=== PATIENT | male | born 1950 | race Caucasian/White ===

== ENCOUNTER 2024-04-09 12:44 | Outpatient (REF) | payer MEDICARE, SELFPAY ==
--- OUTSIDE RECORDS SUMMARY | 2024-04-09 13:48 | XMS_ITS | Clinical Summary ---
Author Organization [address] Address [address] [place] [phone] Phone Care Team Providers Care Missileman Name Role Phone Physician, Pcp Unknown Primary Care Provider Paula vailable Allergies No known active allergies Medications No known medications Encounters Date Type Department Care Team Description 02/01/2024 8:45 AM EST Consult Orthopedic Surgery - [place] [address] [place] [id number] Aakash Galloway, DPM Ulcer of toe of right foot, limited to breakdown of skin (CMS/HCC) (Primary Dx); Local infection of the skin and subcutaneous tissue, unspecified; Bilateral femoral artery stenosis (CMS/HCC) from Last 3 Months Social History Tobacco Use Types Packs/Day Years Used Date Smoking Tobacco: Never Assessed Sex and Gender Information Value Date Recorded Sex Assigned at Not on file Legal Sex Male 3:21 AM EST Gender Identity Not on file Sexual Orientation Not on file Last Filed Vital Signs Vital Sign Reading Time Taken Comments Blood Pressure - - Pulse - - Temperature - - Respiratory Rate - - Oxygen Saturation - - Inhaled Oxygen Concentration - - Weight 68.5 kg (151 lb) 02/01/2024 9:07 AM EST Height 165.1 cm (5' 5 ) 02/01/2024 9:07 AM EST Body Mass Index 25.13 02/01/2024 9:07 AM EST Plan of Treatment Health Maintenance Due Date Last Done Comments DTaP,Tdap,and Td Vaccines (1 - Tdap) 1957 Pneumococcal Vaccine: 50+ Ye ars (1 of 1 - PCV) 1999 Zoster Vaccines (1 of 2) 1999 Abdominal Aortic Aneurysm (A AA) Screen 01/30/2022 Cholesterol Screening (Lipid Panel) 01/30/2022 Colorectal Cancer Screening: Colonoscopy 01/30/2022 Depression Screening 01/30/2022 Falls Risk Assessment 01/30/2022 Hepatitis C Screening 01/30/2022 Medicare Annual Wellness Visit 01/30/2022 Social Influencers of Health Screening 01/30/2022 COVID-19 Vaccine ( - 2023-2 5 season) 2023 Influenza Vaccine (#1) 2023 RSV Immunization Patients 60 + Years Old (1 - 1-dose 75+ series) 2024 HIB Vaccines Aged Out No longer eligi ble based on patient's age to complete this topic HPV Vaccines Aged Out No longer eligi ble based on patient's age to complete this topic Hepatitis A Vaccines Aged Out No long er eligible based on patient's age to complete this topic Hepatitis B Vaccines Aged Out No long er eligible based on patient's age to complete this topic IPV Vaccines Aged Out No longer eligi ble based on patient's age to complete this topic MMR Vaccines Aged Out No longer eligi ble based on patient's age to complete this topic Meningococcal ACWY Vaccine Aged Out N o longer eligible based on patient's age to complete this topic Meningococcal B Vacine Aged Out No lo nger eligible based on patient's age to complete this topic RSV Immunization Patients Un justice 20 months Aged Out No longer eligible b ased on patient's age to complete this topic Varicella Vaccines Aged Out No longer eligible based on patient's age to complete this topic Procedures Procedure Name Priority Date/Time Associated Diagnosis Comments USAMA IFA WITH TITER AND PATTERN Routine 01/24/2024 12:29 PM EST Routine general medical examination at a health care facility TREPONEMA PALLIDUM ANTIBODY WITH REFLEX TO RPR AND PARTICLE AGGLUTINATION Routine 01/24/2024 12:29 PM EST Routine general medical examination at a health care facility BASIC METABOLIC PANEL Routine 01/24/2024 12:29 PM EST Routine general medical examination at a health care facility THYROID STIMULATING HORMONE Routine 01/24/2024 12:29 PM EST Routine general medical examination at a health care facility BORRELIA BURGDORFERI ANTIBODY Routine 01/24/2024 12:29 PM EST Routine general medical examination at a health care facility METHYLMALONIC ACID, SERUM Routine 01/24/2024 12:29 PM EST Routine general medical examination at a health care facility VITAMIN B12 Routine 01/24/2024 12:29 PM EST Routine general medical examination at a health care facility FOLATE Routine 01/24/2024 12:29 PM EST Routine general medical examination at a health care facility from Last 3 Months Results * Treponema pallidum antibody with reflex to RPR and particle agglutination (01/24/2024 12:29 PM EST) T. Pallidum Antibodies Negative Negative LAB CHEMISTRY METHOD 01/26/2024 9:06 AM EST [facility] Blood Venous blood specimen / Unknown Venipuncture / Unknown 01/24/2024 12:29 PM EST 01/24/2024 12:29 PM EST [facility] LAB BLOOD ORDERABLES Final Re sult Performing Organization Address City/Special Care [facility]/ZIP Co de Phone Number [facility] [address] [place] [address], [place] [phone] * USAMA IFA with titer and pattern (01/24/2024 12:29 PM EST) USAMA Negative Negative 01/30/2024 11:17 AM EST [facility] Blood Venous blood specimen / Unknown Venipuncture / Unknown 01/24/2024 12:29 PM EST 01/24/2024 12:29 PM EST Yoan SkillBoostadante DO LAB BLOOD ORDERABLES Final Re sult [facility] [address] [place] [address], [place] [phone] * Methylmalonic acid, serum (01/24/2024 12:29 PM EST) [facility] Methylmalonic Acid 0.12 <0.40 umol/L 01/30/2024 7:59 AM EST [facility] Comment: If applicable, any drug confirmation testing reported here was developed and the performance characteristics determined by [facility]. This confirmation testing has not been cleared or approved by the FDA. The laboratory is regulated under CLIA as qualified to perform high-complexity testing. This test is used for patient testing purposes. It should not be regarded as investigational or for research. Test performed at [facility], [address] , [place], [place] ??[address] ? [phone] Klarissa Dupont MD, PhD - Division Merchandise Manager Blood Venous blood specimen / Unknown Venipuncture / Unknown 01/24/2024 12:29 PM EST 01/24/2024 12:29 PM EST Yoan Fajardo DO LAB BLOOD ORDERABLES Final Re sult [facility] [address] [place] [address] * (ABNORMAL) Borrelia burgdorferi antibody (01/24/2024 12:29 PM EST) [facility] Lyme IgG Antibody Negative Negative LAB CHEMISTRY METHOD 01/26/2024 9:04 AM EST [facility] Lyme IgM Antibody Negative Negative LAB CHEMISTRY METHOD 01/26/2024 9:04 AM EST [facility] Lyme Ab Equivocal(A ) Negative LAB CHEMISTRY METHOD 01/26/2024 9:04 AM EST [facility] Comment: No laboratory evidence of infection with B. burgdorferi (Lyme disease). Negative results may occur in patients recently infected (<=14 days) with B. burgdorferi. ??If recent infection is suspected, repeat testing on a new sample collected in 7-14 days is recommended. Blood Venous blood specimen / Unknown Venipuncture / Unknown 01/24/2024 12:29 PM EST 01/24/2024 12:29 PM EST [facility] LAB BLOOD ORDERABLES Final Re sult Performing Organization Address City/[facility] Care [facility]/ZIP Co de Phone Number [facility] [address] [place] [address], [place] [phone] * (ABNORMAL) Thyroid stimulating hormone (01/24/2024 12:29 PM EST) [facility] TSH 5.59(H) 0.40 - 4.00 mcIU/mL LAB CHEMISTRY METHOD 01/24/2024 7:34 PM EST [facility] Blood Venous blood specimen / Unknown Venipuncture / Unknown 01/24/2024 12:29 PM EST 01/24/2024 12:29 PM EST [facility] BLOOD ORDERABLES Final Re sult Performing Organization Address [facility]/ZIP Co de Phone Number [facility] [address] [place] [address], [place] [phone] * Folate (01/24/2024 12:29 PM EST) [facility] Folate 3.8 2.8 - 17.0 ng/ml LAB CHEMISTRY METHOD 01/24/2024 8:38 PM EST [facility] Blood Venous blood specimen / Unknown Venipuncture / Unknown 01/24/2024 12:29 PM EST 01/24/2024 12:29 PM EST [facility] BLOOD ORDERABLES Final Re sult Performing Organization Address City/[facility] Care [facility]/ZIP Co de Phone Number [facility] [address] [place] [address], [place] [phone] * (ABNORMAL) Vitamin B12 (01/24/2024 12:29 PM EST) [facility] Vitamin B-12 >2,000(H) 250 - 900 pcg/mL LAB CHEMISTRY METHOD 01/24/2024 9:23 PM [facility] Comment:Results verified by repeat testing Blood Venous blood specimen / Unknown Venipuncture / Unknown 01/24/2024 12:29 PM EST 01/24/2024 12:29 PM EST us Yoan Fajardo DO LAB BLOOD ORDERABLES Final Re sult [facility] [address] [place] [address], [place] [phone] * (ABNORMAL) Basic metabolic panel (01/24/2024 12:29 PM EST) Sodium 136 133 - 145 mmol/L LAB CHEMISTRY METHOD 01/24/2024 8:38 PM [facility] Potassium 5.4 3.5 - 5.5 mmol/L LAB CHEMISTRY METHOD 01/24/2024 8:38 PM [facility] Chloride 104 96 - 110 mmol/L LAB CHEMISTRY METHOD 01/24/2024 8:38 PM [facility] CO2 23 21 - 32 mmol/L LAB CHEMISTRY METHOD 01/24/2024 8:38 PM [facility] Anion Gap 9 3 - 11 LAB CHEMISTRY METHOD 01/24/2024 8:38 PM [facility] Glucose 199(H) 70 - 100 mg/dL LAB CHEMISTRY METHOD 01/24/2024 8:38 PM [facility] BUN 18 5 - 25 mg/dL LAB CHEMISTRY METHOD 01/24/2024 8:38 PM [facility] Creatinine 0.96 0.70 - 1.30 mg/dL LAB CHEMISTRY METHOD 01/24/2024 8:38 PM [facility] eGFR 83 >=60 mL/min/1. 73m2 LAB CHEMISTRY METHOD 01/24/2024 8:38 PM [facility] Comment:Calculation based on the??Chronic Kidney Disease Epidemiology Collaboration (CKD-EPI) equation refit??without adjustment for race. BUN/Creatinine Ratio 18.8 LAB CHEMISTRY METHOD 01/24/2024 8:38 PM EST [facility] Calcium 9.9 8.5 - 10.5 mg/dL LAB CHEMISTRY METHOD 01/24/2024 8:38 PM EST [facility] Blood Venous blood specimen / Unknown Venipuncture / Unknown 01/24/2024 12:29 PM EST 01/24/2024 12:29 PM EST us Yoan Fajardo DO LAB BLOOD ORDERABLES Final Re sult [facility] ([facility]) [facility] [address] [place] [address], [place] [phone] from Last 3 Months Insurance [employer] Care Teams Missileman Relationship Specialty Start Date End Date Physician, Pcp Unknown PCP - General 02/01/24
[2024-04-09 14:42] LABS: Vitamin B12 > 2000 pg/mL (200-900)
== END 2024-04-09 12:45 | disposition home or self-care (01) ==
LOC: HO.LAB 12:44
PROVIDERS: PCP Internal Medicine; Visit Provider Psychiatry & Neurology Neurology
DX: G30.9 Alzheimer's disease, unspecified (principal)
CPT/HCPCS: 36415; 82607

== ENCOUNTER 2024-04-19 07:20 | Outpatient (REF) | payer MEDICARE, SELFPAY ==
--- NOTE | ~2024-04-19 | MR_ITS ---
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 No evidence of asymmetric mesial temporal lobe volume loss. No acute infarct. Mild age-related cerebral hemispheric white matter ischemic changes. Small focus of susceptibility artifact in the left cerebellar hemispheric due to small-vessel ischemic changes/disease or a small cavernoma. 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 No midline shift. No hydrocephalus. Vascular flow voids are intact. Bilateral cataract surgery. Mild partial opacification of some of the paranasal sinuses. No focal bone lesion. IMPRESSION: Relatively diffuse mzvd-jf-izdfzwrl cerebral hemispheric volume loss most conspicuous at level of mesial temporal lobes is at least partially age-related. No evidence of asymmetric mesial temporal lobe volume loss. Mild age-related cerebral hemispheric white matter ischemic changes. Small focus of susceptibility artifact in the left cerebellar hemispheric due to small-vessel ischemic changes/disease or a small cavernoma. 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 This document has been electronically signed by: Saumya Kidd MD on 04/19/2024 12:03:18
== END 2024-04-19 07:21 | disposition home or self-care (01) ==
LOC: HO.MRI 07:20
PROVIDERS: PCP Internal Medicine; Visit Provider Psychiatry & Neurology Neurology
DX: G30.9 Alzheimer's disease, unspecified (principal)
CPT/HCPCS: 70551

== ENCOUNTER → 2024-04-19 07:30 | Outpatient (BNV) | payer MEDICARE, SELFPAY | PROVIDERS: PCP Internal Medicine; Visit Provider Radiology Diagnostic Radiology | DX: I67.82 Cerebral ischemia (principal) | CPT/HCPCS: 70551 ==

== ENCOUNTER 2025-01-08 08:15 | Outpatient (AMB) | payer MEDICARE, SELFPAY ==
--- OUTSIDE RECORDS SUMMARY | 2025-01-07 23:59 | XMS_ITS | Continuity of Care Document ---
Author Organization [facility] Address [address] [place] [address]- Care Team Providers Care Snuff Box Finisher Name Role Phone Yoan Fajardo DO Primary Care Physician [id number] Date[facility]s): 12/31/24 - 01/07/25 [facility] [address], [place] [address] Encounter Diagnosis Osteomyelitis of toe of right foot(Discharge Diagnosis) - 12/31/24 T2DM (type 2 diabetes mellitus)(Discharge Diagnosis) - 12/31/24 Attending Physician: Yoan Fajardo DO Admitting Physician: Yoan Fajardo DO Referring Physician: Yoan Fajardo DO Encounter Type: Office Visit Allergies, Adverse Reactions, Alerts No Known Allergies Medications Acetaminophen 0 Refills, Maintenance, 04/12/17 8:49:06 AM EST Start Date: 04/12/17 Status: Ordered Medication Dispense Status: Completed Total Allowed Fills: 1 Fills Dispensed: 0 aspirin 325 mg oral delayed release tablet 325 mg, 1, tablet, By Mouth, Daily, # 30 tablet, Refills 0, Tot. Refills 0, Maintenance, 03/28/17 1:32:42 PM EST, Print Requisition Start Date: 03/28/17 Status: Ordered Medication Dispense Status: Completed Quantity: 30.0 Unit: tablet Total Allowed Fills: 1 Fills Dispensed: 0 BD COLETTE 2 GEN PEN NDL 32G 4MM BD COLETTE 2 GEN PEN NDL 32G 4MM, See Instructions, # 100 Unknown, 5 Refills, Maintenance, USE 1 PEN NEEDLE TO INJECT TRESIBA DAILY, 04/22/24 3:13:00 PM EST, 167.6, cm, 01/12/23 9:29:00 EST, Height Start Date: 04/22/24 Status: Ordered Medication Dispense Status: Completed Quantity: 100.0 Unit: Unknown Total Allowed Fills: 1 Fills Dispensed: 0 bisacodyl 10 mg rectal suppository 1 supp = 10 mg, Rectally, Daily, PRN Constipation, 0 Refills, Maintenance, 03/29/17 7:32:21 AM EST, Suppository Start Date: 03/29/17 Status: Ordered Medication Dispense Status: Completed Total Allowed Fills: 1 Fills Dispensed: 0 Colace sodium 100 mg oral capsule 100 mg, 1, capsule, By Mouth, 2 times a day, # 60 capsule, Refills 0, Tot. Refills 0, Maintenance, 03/28/17 12:36:52 PM EST, Print Requisition Start Date: 03/28/17 Status: Ordered Medication Dispense Status: Completed Quantity: 60.0 Unit: capsule Total Allowed Fills: 1 Fills Dispensed: 0 GlipiZIDE XL 2.5 mg oral tablet, extended release 1 tablet = 2.5 mg, By Mouth, Daily, TAKE RIGHT BEFORE BREAKFAST, # 30 tablet, 11 Refills, Maintenance, 10/25/24 5:03:00 PM EDT, ER Tablet, [facility]/pharmacy #[id number], E11.65, 167.6, cm, 10/25/24 15:25:00 EDT,Height Start Date: 10/25/24 Status: Ordered Medication Dispense Status: Completed Quantity: 30.0 Unit: tablet Total Allowed Fills: 12 Fills Dispensed: 0 lisinopril 20 mg oral tablet 20 mg, 1, tablet, By Mouth, Daily, # 30 tablet, Refills 0, Maintenance, 01/28/17 1:27:23 PM EST Start Date: 01/28/17 Status: Ordered Medication Dispense Status: Completed Quantity: 30.0 Unit: tablet Total Allowed Fills: 1 Fills Dispensed: 0 metFORMIN 850 mg oral tablet 1 tablet = 850 mg, By Mouth, 3 times a day, # 90 tablet, 11 Refills, Maintenance, 10/25/24 5:04:00 PM EDT, [facility]/pharmacy #[id number], E11.9, 167.6, cm, 10/25/24 15:25:00 EDT, Height Start Date: 10/25/24 Stop Date: 10/20/25 Status: Ordered Medication Dispense Status: Completed Quantity: 90.0 Unit: tablet Total Allowed Fills: 12 Fills Dispensed: 0 MiraLax Powder 1 pack/packet = 17 Gm, By Mouth, Daily, 0 Refills, Maintenance, 03/29/17 7:32:55 AM EST, Powder Start Date: 03/29/17 Status: Ordered Medication Dispense Status: Completed Total Allowed Fills: 1 Fills Dispensed: 0 Multivit Therapeutic/Minerals Tablet 1 tablet, By Mouth, Daily, 0 Refills, Maintenance, 03/29/17 7:32:53 AM EST, Tablet Start Date: 03/29/17 Status: Ordered Medication Dispense Status: Completed Total Allowed Fills: 1 Fills Dispensed: 0 PARoxetine 20 mg oral tablet 20 mg, 1, tablet, By Mouth, Daily, # 90 tablet, Refills 0, Maintenance, 01/28/17 1:28:00 PM EST Start Date: 01/28/17 Status: Ordered Medication Dispense Status: Completed Quantity: 90.0 Unit: tablet Total Allowed Fills: 1 Fills Dispensed: 0 rosuvastatin 10 mg oral tablet 1 tablet = 10 mg, By Mouth, Daily, # 30 tablet, 11 Refills, Maintenance, 05/22/19 12:20:00 PM EDT, Tablet, [facility]/pharmacy #[id number], E11.9, 167.6, cm, 11/01/18 9:57:00 EDT, Height, 68.4, kg, 09/27/17 10:52:00 EDT, Dry Weight Start Date: 05/22/19 Status: Ordered Medication Dispense Status: Completed Quantity: 30.0 Unit: tablet Total Allowed Fills: 12 Fills Dispensed: 0 Senna 8.6 mg oral tablet 8.6 mg, 1, tablet, By Mouth, Daily at bedtime, Refills 0, Maintenance, 03/29/17 7:32:57 AM EST, Tablet Start Date: 03/29/17 Status: Ordered Medication Dispense Status: Completed Total Allowed Fills: 1 Fills Dispensed: 0 Tresiba FlexTouch 100 units/mL subcutaneous solution See Instructions, 50 units Subcutaneous Infusion Daily in the morning, # 15 mL, 11 Refills, Maintenance, 10/25/24 5:04:00 PM EDT, [facility] #[id number], E11.9, 30 day supply, 167.6, cm, 10/25/24 15:25:00EDT, Height Start Date: 10/25/24 Status: Ordered Medication Dispense Status: Completed Quantity: 15.0 Unit: mL Total Allowed Fills: 12 Fills Dispensed: 0 Problem List Condition Confirmation Course Effective Dates Status H ealth Status Informant Hyperglycemia due to diabetes mellitus Confirmed Active HTN (hypertension) Confirmed Active Osteomyelitis of toe of right foot Confirmed Active T2DM (type 2 diabetes mellitus) Confirmed Active Diagnosis Diagnosis Type Effective Dates Health Status Clinical Service Informant Osteomyelitis of toe of right foot Discharge Diagnosis 12/31/24 T2DM (type 2 diabetes mellitus) Discharge Diagnosis 12/31/24 Vital Signs Most recent to oldest [Reference Range]: 1 Height 162.5 cm (12/31/24 9:24 AM) Weight 66.3 kg (12/31/24 9:24 AM) Oxygen Saturation [94-100 %] 93 % *L* (12/31/24 9:24 AM) Pulse Rate [55-90 bpm] 65 bpm (12/31/24 9:24 AM) Body Mass Index [18.5-24.99 kg/m2] 25.11 kg/m2 *H* (12/31/24 9:24 AM) Blood Pressure [90-138/55-84 mm Hg] 152/ 66mm Hg *H* (12/31/24 9:24 AM) Mode of Delivery (Oxygen) Room air (12/31/24 9:24 AM) Blood pressure sites Arm, left (12/31/24 9:24 AM) Weight Obtained Via Patient/family state d (12/31/24 9:24 AM) Social History Social History Type Response Smoking Status Never smoker entered on: 03/24/17 Sexual Orientation Self described orien tation: ; Straight or heterosexual Sex Sex Representation Male (finding) Note * Randi Valero: PERFORM Event Display: Patient Education/Instruction Authored Date: [id number] Ambulatory Adult Visit Summary [facility] [id number] [address] [address] Name: ESTEFANY HIDALGO : 1950?? Visit: 12/31/2024 09:02?? Ambulatory Visit Instructions ?? Your Care Team Primary Care Provider Yoan Fajardo DO? This Visit Provider Papito Jurado MD Your Diagnosis Osteomyelitis of toe of right foot T2DM (type 2 diabetes mellitus) Vitals Signs Pulse Rate: 65 bpm Height: 162.5 cm Systolic Blood Pressure:??152 mm Hg??High Weight: 66.3 kg Diastolic Blood Pressure: 66 mm Hg Body Mass Index:??25.11 kg/m2??High Oxygen Saturation:??93 %??Low Body surface area: 1.73 What to do next Scheduled Follow-Up Appointments Monday 7:30 AM EST ?? Type: Ankle Brachial Indexex Where: [facility] [address] [address]- Status: Pending Monday 8:00 AM EST ?? Type: Return With: Papito Jurado MD Where: [facility] [address] [address]- Status: Pending Future Orders VL Ankle Brachial Indices, Routine, Reason for Exam: Claudication, Once, TBI, *Est. 12/31/24 due within 4 week(s), Single or Recurring Future Order Medications The list below reflects the information in our records and provided by you today along with any changes made during this visit. Please continue your medications until treatment is completed or stopped by your provider. If this is different from the information you have or there are other questions,please contact the prescribing provider. What How Much When Instructions Unchanged Acetaminophen Unchanged Aspirin (aspirin 325 mg oral delayed release tablet) 1 tab(s) Oral Daily Ordering Physician: Shilpa Valiente Unchanged Bisacodyl (bisacodyl 10 mg rectal suppository) 1 suppository(ies) Per rectum Daily as needed for Constipation Ordering Physician: Shilpa Valiente Unchanged Docusate (Colace sodium 100 mg oral capsule) 1 capsule Oral Twice a day Ordering Physician: Shilpa Valiente Unchanged GlipiZIDE (GlipiZIDE XL 2.5 mg oral tablet, extended release) 1 tab(s) Oral Daily Special Instructions: TAKE RIGHT BEFORE BREAKFAST Ordering Physician: Declan STRE[address], Giuseppe Gonzalez ?? Unchanged insulin degludec (Tresiba FlexTouch 100 units/ mL subcutaneous solution) See instructions Special Instructions: 50 units Subcutaneous Infusion Daily in the morning Ordering Physician: Giuseppe Manriquez NP ?? Unchanged Lisinopril (lisinopril 20 mg oral tablet) 1 tab(s) Oral Daily Unchanged Metformin (metFORMIN 850 mg oral tablet) 1 tab(s) Oral 3 times a day Duration: 30 Days Ordering Physician: Giuseppe Manriquez NP Unchanged Miscellaneous Rx (BD COLETTE 2 GEN PEN NDL 32G 4MM) See instructions Special Instructions: USE 1 PEN NEEDLE TO INJECT TRESIBA DAILY Ordering Physician: Anmol Donnelly ?? Unchanged Multivitamin With Minerals (Multivit Therapeutic/ Minerals Tablet) 1 tab(s) Oral Daily Ordering Physician: Shilpa Valiente Unchanged Paroxetine (PARoxetine 20 mg oral tablet) 1 tab(s) Oral Daily Unchanged Polyethylene Glycol 3350 (MiraLax Powder) 17 gram Oral Daily Ordering Physician: Shilpa Valiente Unchanged Rosuvastatin (rosuvastatin 10 mg oral tablet) 1 tab(s) Oral Daily Ordering Physician: Jeannie Padilla Unchanged Senna (Senna 8.6 mg oral tablet) 1 tab(s) Oral Daily at Bedtime Ordering Physician: Shilpa Valiente Medications and Immunizations Administered Medications Given During Visit No medications given during this visit.?? Allergies (NKA means No Known Allergies) NKA Common Emergency Awareness Tips IS IT A STROKE? Act FAST and Check for these signs: FACE Does the face look uneven? ARM Does one arm drift down? SPEECH Does their speech sound strange? TIME Call at any sign of stroke ?? Heart Attack Signs Chest discomfort: Most heart attacks involve discomfort in the center of the chest and lasts more than a few minutes, or goes away and comes back. It can feel like uncomfortable pressure, squeezing, fullness or pain. Discomfort in upper body: Symptoms can include pain or discomfort in one or both arms, back, neck, jaw or stomach. Shortness of breath: With or without discomfort. Other signs: Breaking out in a cold sweat, nausea, or lightheaded. Remember, MINUTES DO MATTER. If you experience any of these heart attack warning signs, call to get immediate medical attention! ?? Smoking can increase your chances of developing chronic health problems and can cause harmful effects to other family members in your house. If you smoke, you are strongly encouraged to quit. Please call [facility] [facility] at [phone] or [phone] ([phone]) or log in to [email or web address] for referrals to smoking cessation programs. ?? The National Suicide Prevention Hotline is available 19/09 if you or someone you know needs to find a reason to keep living. By calling 4-497-089-Exosite (3841) you'll be connected to a skilled, trained counselor at a crisis center in your area. [facility] [employer] Portal You can view and manage your care through the patient portal or by using a health care see of your choosing. [employer] is a website that allows you to securely view your medical information including your hospital discharge summary, office visit summaries, medications and follow-up visits. You can also request appointments, renew medications, and request access to your medical information using a health care see of your choosing, or just ask a question. You can enroll at [email or web address] or register during your next office visit. [facility], in keeping with [facility] guidance, no longer requires face masks for staff, patientsor visitors in most situations. Similiar to time spent indoors at other locations, there is the chance that you were exposed to repiratory viruses during your time with us (such as flu or COVID-19). If you develop symptoms concerning for a viral respiratory infection, please seek testing (and treatment if indicated) from your medical provider or home test kit. ?? Disclaimer: The information provided is of a general nature and is intended to be used in conjunction with the recommendations and advice of your health care practitioner. Every effort has been made to ensure that the information provided is accurate and complete at the time it is provided to you however, as your needs change, or, as new information becomes available, different or additional instructions may be required. ?? If you have questions, please consult with your primary care provider or pharmacist, as appropriate. This information is not intended to serve as substitution for assessment and evaluation by a qualified health care provider. If you do not have a primary care provider, you may find a [facility] provider by calling [employer] at [phone]. Patient Care team information Care Team Personnel Name: Althea Rodriguez RN Position: [facility] RN Member Role: Primary Care Nurse Name: Reed Araujo RN Position: [facility] RN Member Role: Primary Care Nurse Name: Radha Maehr RN Position: [facility] RN Member Role: Primary Care Nurse Name: Treasure Pond RN Position: [facility] SN RN Member Role: Primary Care Nurse Name: Linda Vo RN Position: [facility] RN Member Role: Primary Care Nurse Name: Yoan Fajardo DO Position: [facility] Outreach Member Role: PCP Address: [address] [place], [place] [id number] [place], [place] [address] Telecom: Name: Trupti Medellin RN Position: [facility] RN Member Role: Primary Care Nurse Name: Keila Finley RN Position: [facility] RN Member Role: Primary Care Nurse Name: Susan Jo RN Position: [facility] RN Member Role: Primary Care Nurse Name: Mirta Armenta RN Position: [facility] SN RN Member Role: Primary Care Nurse Care Team Related Persons Name: VANDA SHARPE Name: WILLY HIDALGO Name: MARIS HEART Insurance Providers Guarantor name: [facility] Health Plan Information #: [address]: [facility] [facility] [employer] Adv Payer Identifier: NA Member Number: [id number] Group Number: [id number] Subscriber Identifier: [id number] Relationship to Subscriber: self Coverage Type: MEDICARE Coverage Verification Date: Telecom: NA Address:
--- OUTSIDE RECORDS SUMMARY | 2025-01-08 08:21 | XMS_ITS | Clinical Summary ---
Author Organization [address] Address [address] [place] [phone] Phone Care Team Providers Care Chief Hospital Administrator Name Role Phone GinnyYoan fletcher Primary Care Provider [phone] Allergies No known active allergies Medications No known medications Social History Tobacco Use Types Packs/Day Years [...] Health Maintenance Due Date Last Done Comments Colorectal Cancer Screening: Colonoscopy 1950 Diabetes: Annual Foot Exam 1959 Diabetes: Annual Retina Eye Exam 1959 DTaP,Tdap,and Td Vaccines (1 - Tdap) 1968 Pneumococcal Vaccine: 50+ Years (1 of 1 - PCV) 1999 Zoster Vaccines (1 of 2) 1999 Abdominal Aortic Aneurysm (AAA) Screen 01/30/2022 Falls Risk Assessment 01/30/2022 Hepatitis C Screening 01/30/2022 Medicare Annual Wellness Visit 01/30/2022 Social Influencers of Health Screening 01/30/2022 Depression Screening 02/28/2024 RSV Immunization Adult Patients (1 - 1-dose 75+ series) 2024 COVID-19 Vaccine ( - 2024-2 6 season) 2024 Influenza Vaccine (#1) 2024 Diabetes: Blood Sugar Contro l Test (HGBA1C) 12/11/2024 06/11/2024 Diabetes: Annual Urine Albumin-Creatinine Ratio (uACR) 06/11/2025 06/11/2024 Diabetes: Annual GFR (Glomerular Filtration Rate) 06/11/2025 06/11/2024, 01/24/2024 Cholesterol Screening (Lipid Panel) 06/11/2029 06/11/2024 HIB Vaccines Aged Out No longer eligi [...] age to complete this topic Meningococcal B Vaccine Aged Out No l onger eligible based on patient's age to complete this topic RSV Immunization Patients Under 20 months Aged Out No longer eligible b ased on patient's age to complete this topic Varicella Vaccines Aged Out No longer eligible based on patient's age to complete this topic Procedures Procedure Name Priority Date/Time Associated Diagnosis Comments MICROALBUMIN CREATININE URINE RATIO Routine 06/11/2024 11:16 AM EDT Metabolic dysfunction-associa cait steatotic liver disease (MASLD) HLD (hyperlipidemia) BPH (benign prostatic hyperplasia) ED (erectile dysfunction) HTN (hypertension) Weight gain BASIC METABOLIC PANEL Routine 06/11/2024 11:16 AM EDT Metabolic dysfunction-associa cait steatotic liver disease (MASLD) HLD (hyperlipidemia) BPH (benign prostatic hyperplasia) ED (erectile dysfunction) HTN (hypertension) Weight gain HEMOGLOBIN A1C Routine 06/11/2024 11:16 AM EDT Metabolic dysfunction-associa cait steatotic liver disease (MASLD) HLD (hyperlipidemia) BPH (benign prostatic hyperplasia) ED (erectile dysfunction) HTN (hypertension) Weight gain Abnormal finding of blood chemistry, unspecified LIPID PANEL WITH REFLEX TO DIRECT LDL Routine 06/11/2024 11:16 AM EDT Metabolic dysfunction-associa cait steatotic liver disease (MASLD) HLD (hyperlipidemia) BPH (benign prostatic hyperplasia) ED (erectile dysfunction) HTN (hypertension) Weight gain from Last 3 Months or Most Recently Relevant to Health Maintenance Results * (ABNORMAL) Lipid panel with reflex to direct LDL (06/11/2024 11:16 AM EDT) Cholesterol 104 0 - 200 mg/dL LAB CHEMISTRY METHOD 06/11/2024 5:46 PM EDT [facility] Triglycerides 148 0 - 150 mg/dL LAB CHEMISTRY METHOD 06/11/2024 5:46 PM EDT [facility] HDL 39(L) >=40 mg/dL LAB CHEMISTRY METHOD 06/11/2024 5:46 PM EDT [facility] LDL Calculated 35 0 - 100 mg/dL LAB CHEMISTRY METHOD 06/11/2024 5:46 PM EDT [facility] VLDL Cholesterol Miller 29.6 mg/dL LAB CHEMISTRY METHOD 06/11/2024 5:46 PM EDT [facility] Non HDL Chol. (LDL+VLDL) 65 <145 mg/dL LAB CHEMISTRY METHOD 06/11/2024 5:46 PM EDT [facility] Chol/HDL Ratio 2.7 0.0 - 4.4 LAB CHEMISTRY METHOD 06/11/2024 5:46 PM T [facility] Blood Venous blood specimen / Unknown Venipuncture / Unknown 06/11/2024 11:16 AM EDT 06/11/2024 11:16 AM EDT us Yoan Fajardo DO LAB BLOOD ORDERABLES Final Re sult [facility] [address] [place] [address], [place] [phone] * (ABNORMAL) Microalbumin creatinine urine ratio (06/11/2024 11:16 AM EDT) Creatinine, Urine 94.0 mg/dL LAB CHEMISTRY METHOD 06/11/2024 7:57 PM EDT [facility] Microalb, Ur 32.9(H) 0.0 - 29.0 mg/L LAB CHEMISTRY METHOD 06/11/2024 7:57 PM EDT [facility] Microalb/Crea t Ratio 35(H) <30 mg/g creat LAB CHEMISTRY METHOD 06/11/2024 7:57 PM EDT [facility] Urine Urine specimen obtained by clean catch procedure / Unknown Non-blood Collection / Unknown 06/11/2024 11:16 AM EDT 06/11/2024 11:16 AM EDT Yoan [employer] DO LAB URINE ORDERABLES Final Re sult [facility] [address] [place] [address], * (ABNORMAL) Hemoglobin A1c (06/11/2024 11:16 AM EDT) Hemoglobin A1C 7.9(H) <6.5 % LAB CHEMISTRY METHOD 06/11/2024 9:52 PM EDT [facility] Mean Bld Glu Estim. 180 mg/dL LAB CHEMISTRY METHOD 06/11/2024 9:52 PM EDT [facility] Blood Venous blood specimen / Unknown Venipuncture / Unknown 06/11/2024 11:16 AM EDT 06/11/2024 11:16 AM EDT Yoan [employer] DO LAB BLOOD ORDERABLES Final Re sult [facility] [address] [place] [address], [place] [phone] * (ABNORMAL) Basic metabolic panel (06/11/2024 11:16 AM EDT) Sodium 134 133 - 145 mmol/L LAB CHEMISTRY METHOD 06/11/2024 5:46 PM [facility] Potassium 4.5 3.5 - 5.5 mmol/L LAB CHEMISTRY METHOD 06/11/2024 5:46 PM [facility] Chloride 104 96 - 110 mmol/L LAB CHEMISTRY METHOD 06/11/2024 5:46 PM [facility] CO2 22 21 - 32 mmol/L LAB CHEMISTRY METHOD 06/11/2024 5:46 PM [facility] Anion Gap 8 3 - 11 LAB CHEMISTRY METHOD 06/11/2024 5:46 PM [facility] Glucose 291(H) 70 - 100 mg/dL LAB CHEMISTRY METHOD 06/11/2024 5:46 PM [facility] BUN 19 5 - 25 mg/dL LAB CHEMISTRY METHOD 06/11/2024 5:46 PM [facility] Creatinine 1.02 0.70 - 1.30 mg/dL LAB CHEMISTRY METHOD 06/11/2024 5:46 PM [facility] eGFR 77 >=60 mL/min/1. 73m2 LAB CHEMISTRY METHOD 06/11/2024 5:46 PM [facility] Comment:Calculation based on the Chronic Kidney Disease Epidemiology Collaboration (CKD-EPI) equation refit without adjustment for race. BUN/Creatinine Ratio 18.6 LAB CHEMISTRY METHOD 06/11/2024 5:46 PM [facility] Calcium 9.5 8.5 - 10.5 mg/dL LAB CHEMISTRY METHOD 06/11/2024 5:46 PM [facility] Blood Venous blood specimen / Unknown Venipuncture / Unknown 06/11/2024 11:16 AM EDT 06/11/2024 11:16 AM EDT Yoan Fajardo DO LAB BLOOD ORDERABLES Final Re sult [facility] [place] ([facility]) [facility] [address] [place] [address], [place] [phone] from Last 3 Months or Most Recently Relevant to Health Maintenance Insurance [employer] Care Teams Chief Hospital Administrator Relationship Specialty Start Date End Date Yoan Fajardo DO [address] [place] [phone] PCP - General Internal Medicine 06/11/24
--- NOTE | 2025-01-08 08:33 | MHC.OFFVIS ---
Intake Visit Reasons: 6 month f/u HPI Comments Details: 74 yo man probably with Alzheimer type dementia causing cognitive and behavioral symptoms. He is presenting with follow-up concerns associated with diabetes mellitus and consequent complications, including a toe amputation. Following this event, the patient has exhibited reduced mobility and spends significant time indoors. The amputation arose due to diabetic complications, although specific details about the nature and timeline of these complications were not discussed. Additionally, the patient experiences disturbances consistent with dementia, including memory-related challenges. Sleep disturbances are also prominent, with irregular sleep patterns and instances of night-time wakefulness. Despite some daytime sleeping, the patient's sleep quality remains suboptimal, occasionally achieving only two hours of rest on certain nights. Stress and anxiety were acknowledged, although the impact and triggers were not extensively elaborated upon. Socially, the patient has transitioned from an environment with familial and social interactions to a more isolated setting in [place], influenced by a relocation approximately one year ago. Current medications include Memantine and Paxil, with an additional consideration for Trazodone to address sleep concerns. Routine activities are limited due to the amputated toe, and the patient does not participate in driving, relying on his spouse for transportation. Review of Systems Narrative - General: Reports sleep disturbance. - Neurologic: Reports cognitive dysfunction; Denies hallucinations. - Psychological: Reports anxiety and stress. - Genitourinary: Denies bladder control issues. Physical Exam Neuro Other: Mental Status: Alert and oriented to person, place, and time. Normal attention. Normal spontaneous speech, fluency, and comprehension. Cranial Nerves: CN II: Visual cornejo full to confrontation, visual acuity intact. CN III, IV, : Pupils equal, round, reactive to light and accommodation. Extraocular movements are normal. CN V: Facial sensation is normal. CN VII: Facial movements symmetrical. CN VIII: Hearing intact to bedside conversation is normal. CN IX, X: Palate elevates symmetrically. CN XI: Shoulder shrug and head turn symmetrical. CN XII: Tongue midline without atrophy or fasciculations. Gait and Station: No obvious gait abnormality. No ataxia or instability. Extrapyramidal: Full facial expressions and blinking. No rigidity. Movements are appropriate with no tremor or abnormality. Speech: Normal; no dysarthria or tremor. Assessment & Plan Assessment & Plan (1) Alzheimer disease: Comment: [place] brain [place] [facility] [place] [facility] [place]: Mod diff atrophy. Code(s): G30.9 - Alzheimer's disease, unspecified; F02.80 - Dementia in other diseases classified elsewhere, unspecified severity, without behavioral disturbance, psychotic disturbance, mood disturbance, and anxiety Category: Medical Plan Impression: 1. Moderately severe probably Alzheimer type dementia 2. Anxiety disorder associated with dementia 3. 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 Continue social and physical activity 2. Donepezil 10 mg a day taken at night 2. Memantine 5 mg twice a day 3. Paroxetine 20 mg in the morning with breakfast 4. Tried trazodone 50 mg half to 1 tablet at bedtime for insomnia Medications: New trazodone 50 mg PO BEDTIME PRN 90 tabs 1RF sleep Refilled donepezil 10 mg PO BEDTIME 90 tabs 1RF memantine (Namenda) 5 mg PO BID 180 tabs 1RF paroxetine HCl 20 mg PO DAILY 90 tabs 1RF Coding Level of Care Code Tele Est Pt Level 3 (07026) Global (57709) Diagnoses Alzheimer disease G30.9; F02.80 Time Spent (min) 30
== END 2025-01-08 08:48 | disposition home or self-care (01) ==
LOC: HO.HSM 08:16
PROVIDERS: PCP Internal Medicine; Referring Provider Internal Medicine; Visit Provider Psychiatry & Neurology Neurology
DX: G30.9 Alzheimer's disease, unspecified (principal); F02.80 Dementia in other diseases classified elsewhere, unspecified severity, without behavioral disturbance, psychotic disturbance, mood disturbance, and anxiety
CPT/HCPCS: 99213; G2211

== ENCOUNTER → 2025-01-08 08:15 | Outpatient (BNVA) | payer MEDICARE, SELFPAY | PROVIDERS: PCP Internal Medicine; Referring Provider Internal Medicine; Visit Provider Psychiatry & Neurology Neurology | DX: G30.9 Alzheimer's disease, unspecified (principal); G30.8 Other Alzheimer's disease; F02.B18 Dementia in other diseases classified elsewhere, moderate, with other behavioral disturbance | CPT/HCPCS: 99212 ==